=== PATIENT | male | born 1975 | race Caucasian/White ===

== ENCOUNTER 2016-09-23 20:54 | Emergency (ER) | payer OTHER ==
[2016-09-23 20:59] VITALS: RESP 16
[2016-09-23] MEDS ORDERED: TDAP ADULT 0.5 ML INJ (BOOSTRIX) IM ONE (21:01)
--- NOTE | 2016-09-23 21:22 | EDPHY ---
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 - Personal History Current Tetanus/Diphtheria Vaccine: Yes Current Tetanus Diphtheria and Acellular Pertussis (TDAP): Yes Tetanus Vaccine Date: 2007 - Medical/Surgical History Hx Asthma: No Hx Chronic Respiratory Disease: No Hx Diabetes: No Hx Cardiac Disease: No Hx Renal Disease: No Hx Cirrhosis: No Hx Alcoholism: No Hx HIV/AIDS: No Hx Splenectomy or Spleen Trauma: No Other PMH: none - Social History Smoking Status: Never smoked HPI/ROS: Chief complaint: Left 2nd finger laceration History of present illness: 41-year-old male presents to the emergency department for left 2nd finger laceration. Patient reports he was using a knife when it slipped cutting his finger. There has been some pain and bleeding , bleeding controlled with a dressing. Denies associated signs or symptoms including no abnormal coolness or paresthesias in the finger. He is still moving it well. He does not believe his tetanus shot is up-to-date. (Rafael Lainez ) - Physical Exam Exam: General: Alert, nontoxic Skin: There is a 1 cm laceration to the lateral aspect of the distal left pointer finger. No foreign bodies visualized. Musculoskeletal: Patient is flexing and extending his left pointer finger in the DIPJ, PIP and MCP joint well. Vascular: Capillary refill brisk in the left pointer finger. Radial pulses 2+. Neurologic: Sensation intact in the left pointer finger using light touch and two-point discrimination. (Rafael Lainez) Constitutional: Initial Vital Signs Temperature (C) 36.8 C 09/23/16 20:56 Heart Rate 60 09/23/16 20:56 Respiratory Rate 16 09/23/16 20:56 Blood Pressure 131/85 H 09/23/16 20:56 O2 Sat (%) 96 09/23/16 20:56 O2 Delivery Mode Room Air Allergies/Adverse Reactions: No Known Allergies Allergy (Unverified 09/23/16 20:56) Home Medications: Medication Instructions Recorded NK [No Known Home Meds] 09/23/16 Medical Decision Making Procedures: Procedure: Laceration repair. Verbal consent was obtained from the patient. The 1 cm laceration on the left pointer finger was anesthetized in the usual fashion. The wound was irrigated, draped and explored to its base with a gloved finger. There were no deep structures involved. No tendon injury was identified. The wound was repaired with 5 0 Prolene, 4 simple interrupted sutures. The wound repair was simple. The procedure was performed by myself. (Rafael Lainez) ED Course/Re-evaluation: Patient seen under the supervision of my secondary supervising physician Dr. Cassandra Tyler. Patient presents to the emergency department for evaluation of a laceration to his left pointer finger. The finger is neurovascularly intact. He has good musculoskeletal control of the finger. His tetanus is updated. The wound is cleaned, repaired and dressed. Patient is discharged home. Home care is discussed. He is referred to hand surgery for recheck. Return precautions are given. Patient voiced understanding and agreement with plan. (Rafael Lainez) The patient was evaluated and managed by the physician's clinical assistant professor. My cosignature indicates that I reviewed the chart and I agree with the findings and plan of care as documented. I am the secondary supervising physician. ( Cassandra Tyler) - Data Points Medications Given: Discontinued Medications Diphtheria/Tetanus/Acell Pertussis (Boostrix) 0.5 ml IM .ONCE ONE Stop: 09/23/16 21:02 Last Admin: 09/23/16 21:09 Dose: 0.5 ml Departure - Departure Disposition: Home, Routine, Self-Care Clinical Impression: Finger laceration Qualifiers: Encounter type: initial encounter Qualified Code(s): S61.219A - Laceration without foreign body of unspecified finger without damage to nail, initial encounter Condition: Good Instructions: Care For Your Stitches (ED), Finger Laceration (ED), Acute Wounds (ED) Additional Instructions: Follow-up with a hand doctor for recheck Stitches to be removed in 5-7 days If symptoms worsen or new symptoms develop return to the emergency room for recheck Referrals: Rj Hunt [Primary Care Provider] - As per Instructions Iesha Hearn MD [Medical Doctor] - As per Instructions
[2016-09-23 22:05] VITALS: BP 124/73; PULSE 64; TEMP 98.1; O2SAT 95
== END 2016-09-23 22:05 | disposition home or self-care (01) ==
DX: S61.211A Laceration without foreign body of left index finger without damage to nail, initial encounter (principal); Z23 Encounter for immunization; W26.0XXA Contact with knife, initial encounter